=== PATIENT | male | born 1950 | race Caucasian/White ===

== ENCOUNTER 2020-06-28 12:05 | Observation (INO) | payer OTHER ==
[~2020-06-28] VITALS: Ht 177.8 cm; Wt 99.3 kg
[2020-06-28 13:01] LABS: HEMOGLOBIN 16.7 gm/dl (14.0-17.5); RED BLOOD COUNT 4.94 M/UL (4.20-5.50); WHITE BLOOD COUNT 11.4 K/UL (4.5-11.0)
[2020-06-28 13:30] LABS: BUN/CREATININE RATIO 15 (0-10)
[2020-06-28] MEDS ORDERED: NORVASC2.5 MG PO (19:09)
[2020-06-28] MEDS ORDERED: LIPITOR TAB 1010 MG PO (19:09)
[2020-06-28] MEDS ORDERED: ISOSORBIDE MONO60 MG PO (19:11)
[2020-06-28] MEDS ORDERED: MOBIC15 MG PO (19:11)
[2020-06-28] MEDS ORDERED: PROTONIX 40 MG40 M1 PO (19:12)
[2020-06-28] MEDS ORDERED: LYRICA150 MG PO (19:12)
[2020-06-28] MEDS ORDERED: ASPIRIN EC81 MG PO (19:13)
[2020-06-28] MEDS ORDERED: CALCIUM 600 +1 EAC3 PO (19:14)
[2020-06-28] MEDS ORDERED: CINNAMON500 MG PO (19:14)
[2020-06-28] MEDS ORDERED: VITAMIN B-121000 MC2 SL (19:15)
[2020-06-28] MEDS ORDERED: KRILL OIL 1,001 EAC1 PO (19:16)
[2020-06-28] MEDS ORDERED: MULTI-VITAMIN1 EACH PO (19:17)
[2020-06-28] MEDS ORDERED: VITAMIN E400 UNI1 PO (19:17)
[2020-06-28] MEDS ORDERED: [UNRECOGNIZED DRUG - OTHER] TOP (19:19)
[2020-06-29 02:16] LABS: RED BLOOD COUNT 4.61 M/UL (4.20-5.50); WHITE BLOOD COUNT 8.8 K/UL (4.5-11.0)
[2020-06-29 02:33] LABS: BUN/CREATININE RATIO 19 (0-10)
== END 2020-06-29 15:35 | disposition home or self-care (01) ==
LOC: ER1 12:05 → CDU 17:42 → MED SURG 4 17:42
PROVIDERS: Physician Assistant Medical; ADMIT Internal Medicine
DX: T58.91XA Toxic effect of carbon monoxide from unspecified source, accidental (unintentional), initial encounter (principal); I25.10 Atherosclerotic heart disease of native coronary artery without angina pectoris; I10 Essential (primary) hypertension; E78.5 Hyperlipidemia, unspecified; Z88.2 Allergy status to sulfonamides; Z82.49 Family history of ischemic heart disease and other diseases of the circulatory system; Z80.42 Family history of malignant neoplasm of prostate; Z95.1 Presence of aortocoronary bypass graft; Z79.899 Other long term (current) drug therapy
CPT/HCPCS: 36600; 70450; 71045; 80048; 80053; 82550; 82553; 82803; 82805; 83605; 83735; 83874; 84484; 85025; 85027; 93005; 96365; 96366; 96367; 99285; G0378; J0696; J2543; J7030

== ENCOUNTER → 2020-07-11 | Outpatient (CLI) | payer OTHER, MEDICARE ==
[~2020-07-11] MED LIST: ASPIRIN EC81 MG PO; CALCIUM 600 +1 EAC3 PO; CINNAMON500 MG PO; ISOSORBIDE MONO60 MG PO; KRILL OIL 1,001 EAC1 PO; LIPITOR TAB 1010 MG PO; LYRICA150 MG PO; MOBIC15 MG PO; MULTI-VITAMIN1 EACH PO; NORVASC2.5 MG PO; PROTONIX 40 MG40 M1 PO; VITAMIN B-121000 MC2 SL; VITAMIN E400 UNI1 PO; [UNRECOGNIZED DRUG - OTHER] TOP
== END ==
LOC: KOH-I 13:01
DX: R91.8 Other nonspecific abnormal finding of lung field (principal)
CPT/HCPCS: 71250